=== PATIENT | female | born 1985 | race Caucasian/White ===

== ENCOUNTER 2025-04-01 15:02 | Emergency (ER) | payer OTHER, SELFPAY ==
[2025-04-01 15:05] VITALS: BP 174/106
--- NOTE | 2025-04-01 15:55 | ED.MUSCINJ ---
HPI-Injury
General
Chief Complaint: Musculo-Skeletal Complaint
Source: patient
Exam Limitations: none
Time Seen by Provider: 04/01/25 15:38
Nursing documentation reviewed up to this point in time: agreed with
History of Present Illness-Injury
Initial Injury comments:
Patient to the emergency department with complaint of right ankle pain. States she stepped off a curb and rolled her ankle earlier this week. Since then she has had swelling and bruising and pain to her ankle. She is able to ambulate but with
pain. She attempted to go to work today, however employer is requesting and note that she is cleared to return to work. She was evaluated at urgent care, given a prescription for an x-ray and sent to the emergency department. Brought self to the
ED for evaluation.
Past History
Past History
ED Past Medical History: Other (urinary tract infection, PHlebitis, DVT X2)
ED Past Surgical History: None
Social History
Tobacco: Smoker
Alcohol: Occasional
Personal: Single
Living: with family
Employment: Employed
Family History
Family History: Negative Diabetes, Hypertension or CAD
Review of Systems
Review of Systems
Allergies reviewed?: Yes
All Other Systems: ROS reviewed and negative except as documented in HPI and ROS
Constitutional: Reports no symptoms
Musculoskeletal: Reports joint pain (Pain to right medial and lateral ankle.)
Skin: Reports no symptoms
Neurological: Reports no symptoms
Psychiatric: Reports no symptoms
Musculoskeletal Injury Exam
Musculoskeletal Injury Exam
Right Ankle:
Pain with Movement?: Moderate
Tender to palpation?: Moderate
Soft tissue swelling?: Moderate
External deformity and angulation?: None
Joint effusion?: None
Contusion?: None
Hematoma-local bleeding into tissue?: Moderate
Strain- Sprain- Tear (Connective tissue injury)?: Moderate
Crepitus with movement?: No
Joint instability?: No
Malalignment/deformity?: No
Range of motion: Limited
Distal skin color and temperature: normal-warm & good color
Capillary Refill: normal
Normal distal neurovascular exam?: Yes
Peripheral Pulses: posterior tibial (right): 3+ and dorsalis pedis (right): 3+
Phy Exam
General Physical Exam
General Presentation: well appearing and no apparent distress
General age: appears stated age
General Skin: warm and dry
General Habitus: normal
General Mental: alert
Musculoskeletal Exam
Musculoskeletal Exam: full ROM, neuro vasc intact and other (Achilles intact, no tenderness base of 5th, proximal tib-fib)
Skin Exam
Skin Exam: normal color, warm/dry and no rash
Psychiatric Exam
Psychiatric Exam: normal mood/affect
Injury Course
Orders/Labs/Results
Orders:
Orders
04/01/25 15:40
Ankle, Right 3 view CR [CR Ankle - Right Min 3 Views *] Urgent
Comment:
Reason For Exam: trauma
*Radiology
Radiology exam reviewed: radiology read reviewed
*Pulse Oximetry
SaO2: 99
Oxygen Mode of Delivery: Room air
Patient hypoxic: no
*Critical Care Note
Total Time (30-74mins, 75-104mins- exclusive of procedures): Not Applicable
Update Note
Update Note:
Patient to the emergency department for x-ray. She reports rolling her ankle earlier this week, reports swelling and bruising to ankle. Her employer is requesting a note to return to work. She was seen by urgent care and advised to come to the
emergency department for x-ray. X-ray reviewed, negative for acute finding. She was given an Aircast by her urgent care and she states she will wear that. She reports that she is comfortable ambulating and feels she is able to do her job.
Patient is discharged home. She was given a note to return to work at her request. She was also given the number for orthopedics and instructed to follow-up if her symptoms worsen or for any further concerns.
ED Attending Note
-
Portions of this chart may have been created with voice recognition software.� Occasional wrong word or��sound alike� substitutions may have occurred due to the inherent limitations of voice recognition software.
Discharge Plan
Departure
Patient Disposition: Home (Routine Discharge)
Date of Disposition: 04/01/25
Time of Disposition: 16:14
Patient with high blood pressure during this ER visit?: No
Condition: Good
Covid-19: Not Applicable
Discharge Problem:
Ankle sprain
Instructions: Sprain (DC), Ibuprofen, Using Cold for Pain
Prescriptions:
No Action
vit-iron fum-folic ac 1 EACH tablet
1 ea PO DAILY
oxycodone-acetaminophen 5 MG/325 MG tablet
1 tab PO Q4HPRN PRN (Reason: moderate pain) Qty: 30 0RF
ibuprofen 600 MG tablet
600 mg PO Q4HPRN PRN (Reason: cramps) 0RF
Referrals:
Hayden Carrillo MD [Active, Orthopedics]
Referral Note: Follow up if your symptoms do not improve over the next week.
UNKNOWN - PT DOES,NOT KNOW [Family Provider]
Stand Alone Forms: Return to Work
Interventions
Interventions:
*Risk Screen - Suicide Last Done: 04/01/25 15:27
*General Assessment Last Done: 04/01/25 15:05
*Neglect/Abuse Screening Last Done: 04/01/25 15:27
*ED- Fall Risk Assessment Last Done: 04/01/25 15:27
ED-Musculoskeletal Assessment Last Done: 04/01/25 15:28
Discharge Date and Time
Print Language: [id number]
[2025-04-01] MEDS: MOTRIN 600 MG PO (16:19)
== END 2025-04-01 16:22 | disposition home or self-care (01) ==
LOC: EMR 15:02
PROVIDERS: EMERGENCY PHYSICIAN Emergency Medicine
DX: S93.401A Sprain of unspecified ligament of right ankle, initial encounter (principal); X50.1XXA Overexertion from prolonged static or awkward postures, initial encounter; F17.200 Nicotine dependence, unspecified, uncomplicated; Z86.718 Personal history of other venous thrombosis and embolism; Z86.72 Personal history of thrombophlebitis
CPT/HCPCS: 99283; 73610